=== PATIENT | female | born 1960 | race Caucasian/White ===

== ENCOUNTER 2017-01-23 10:50 | Emergency (ER) | payer BC ==
[~2017-01-23] VITALS: Ht 167.6 cm; Wt 95.5 kg
[~2017-01-23 10:50] MED LIST: LORTA5 PO; MACR100C37 PO; Z.0.NO CURRENT MEDS; ZOFR4TAB3 SL
[2017-01-23 10:51] VITALS: BP 180/84; PULSE 67; RESP 16; TEMP 98.6; O2SAT 98
[2017-01-23] MEDS ORDERED: METO1TAB9 PO (11:10)
[2017-01-23] MEDS ORDERED: GABA800T PO (11:10)
[2017-01-23] MEDS ORDERED: ASPI-516 CHEW (11:10)
[2017-01-23] MEDS ORDERED: SITA1TAB2 PO (11:10)
[2017-01-23] MEDS ORDERED: SIMV20TA PO (11:10)
[2017-01-23] MEDS ORDERED: VITA250T3 PO (11:10)
[2017-01-23] MEDS ORDERED: GLIM4TAB PO (11:10)
[2017-01-23] MEDS ORDERED: GABA400C5 PO (11:10)
[2017-01-23] MEDS ORDERED: DICL75TA PO (11:10)
[2017-01-23] MEDS ORDERED: METF850T PO (11:10)
[2017-01-23] MEDS ORDERED: AMLO5TAB2 PO (11:10)
[2017-01-23] MEDS ORDERED: SODIUM CHLOR 0.9% 1000 ML INJ 1,000 ML IV SCH (11:13)
[2017-01-23] MEDS ORDERED: SODIUM CHLORIDE 0.9% FLUSH 10 ML FLUSH IV FLUSH PRN (11:15)
--- NOTE | 2017-01-23 11:24 | PD ---
HPI Chief Complaint: GI Complaint Time Seen by Provider: 11:04 Travel History International Travel<30 days: No Contact w/Intl Traveler<30days: No Traveled to known affect area: No History of Present Illness HPI 56 year old female presents to the emergency department for evaluation of lower abdominal cramping and diarrhea with mucous with blood. Patient states that last weekend she had diarrhea. She states then she had constipation. She woke up this morning around 2 AM with a lot of lower abdominal cramping. She multiple episodes of diarrhea. She states that around 4 AM, she started with mucous in her stool which was bloody. She states she has never had this issue before. She denies any fevers or chills. No chest pain or shortness of breath. She reports history of hysterectomy and appendectomy. Patient states the cramping is mild. No radiation of the pain. No associated nausea or vomiting. Patient with history of diabetes, hypertension, hyperlipidemia. She is not on anticoagulants. Severity is moderate. No exacerbating or alleviating factors. PFSH Past Medical History Blood Disorders: No Heart Rhythm Problems: No Cancer: No Cardiovascular Problems: No High Cholesterol: No Chest Pain: No Congestive Heart Failure: No Diabetes: Yes Patient Takes Glucophage: Yes Endocrine: No Genitourinary: No Hypertension: Yes Immune Disorder: No Implanted Vascular Access Dvce: No Musculoskeletal: Yes (ACHY MUSCLES) Neurologic: No Psychiatric: No Reproductive: Yes (HYSTERECTOMY) Respiratory: No Immunizations Current: Yes Thyroid Disease: No Tetanus Vaccination: Unknown Influenza Vaccination: No ?: Not Menopausal: Yes Past Surgical History Appendectomy: Yes Genitourinary Surgery: Yes (bladder lift) Hysterectomy: Yes Pacemaker: No Other Surgery: Yes (LEFT HEEL SPUR RASP) Social History Alcohol Use: No Tobacco Use: Yes Substance Use: No Allergies-Medications (Allergen,Severity, Reaction): Coded Allergies: amoxicillin (Unverified Allergy, Severe, 01/23/17) clavulanic acid (Unverified Allergy, Severe, 01/23/17) Reported Meds & Prescriptions Reported Meds & Active Scripts Active Reported Aspirin 81 Mg Chew 81 Mg CHEW DAILY Vitamin C (Ascorbic Acid) 250 Mg Tab 500 Mg PO Simvastatin 20 Mg Tab 20 Mg PO DAILY Januvia (Sitagliptin Phosphate) 100 Mg Tab 100 Mg PO DAILY Metoprolol Succinate ER 24 HR (Metoprolol Succinate) 50 Mg Tab 50 Mg PO DAILY Diclofenac Sodium DR (Diclofenac Sodium) 75 Mg Tabdr 75 Mg PO DAILY Glimepiride 4 Mg Tab 4 Mg PO DAILY Take with breakfast or first main meal Amlodipine (Amlodipine Besylate) 5 Mg Tab 5 Mg PO DAILY Metformin (Metformin HCl) 850 Mg Tab 850 Mg PO DAILY With a meal Gabapentin 800 Mg Tab 800 Mg PO HS Gabapentin 400 Mg Cap 400 Cap PO DAILY@0600 Review of Systems Except as stated in HPI: all other systems reviewed are Neg Physical Exam Narrative GENERAL: Well-nourished, well-developed female patient, ambulatory. Afebrile. SKIN: Focused skin assessment warm/dry. HEAD: Normocephalic. Atraumatic. EYES: No scleral icterus. No injection or drainage. NECK: Supple, trachea midline. No JVD or lymphadenopathy. CARDIOVASCULAR: Regular rate and rhythm without murmurs, gallops, or rubs. RESPIRATORY: Breath sounds equal bilaterally. No accessory muscle use. Lungs sounds are clear to auscultation throughout. GASTROINTESTINAL: Abdomen soft, non-tender, nondistended. MUSCULOSKELETAL: No cyanosis, or edema. BACK: Nontender without obvious deformity. No CVA tenderness. RECTAL EXAM: No masses or tenderness, stool is brown. Sunrise noted on finger, this is Hemoccult positive. This exam was done with RN at bedside. Data Data Last Documented VS Vital Signs Date Time Temp Pulse Resp B/P (MAP) Pulse Ox O2 Delivery O2 Flow Rate FiO2 01/23/17 11:42 70 14 125/71 (89) 99 Room Air 01/23/17 10:51 98.6 Orders Orders Complete Blood Count With Diff (01/23/17 11:13) Comprehensive Metabolic Panel (01/23/17 11:13) Lipase (01/23/17 11:13) Prothrombin Time / Inr (Pt) (01/23/17 11:13) Act Partial Throm Time (Ptt) (01/23/17 11:13) Urinalysis - C+S If Indicated (01/23/17 11:13) Ct Abd/Pel W Iv Contrast(Rout) (01/23/17 11:13) Iv Access Insert/Monitor (01/23/17 11:13) Ecg Monitoring (01/23/17 11:13) Oximetry (01/23/17 11:13) Sodium Chlor 0.9% 1000 Ml Inj (Ns 1000 M (01/23/17 11:13) Sodium Chloride 0.9% Flush (Ns Flush) (01/23/17 11:15) Type And Screen (01/23/17 11:13) Iohexol 350 Inj (Omnipaque 350 Inj) (01/23/17 12:59) Labs Laboratory Tests Test 01/23/17 11:25 01/23/17 11:30 White Blood Count 12.7 TH/MM3 Red Blood Count 4.37 MIL/MM3 Hemoglobin 12.4 GM/DL Hematocrit 37.4 % Mean Corpuscular Volume 85.7 FL Mean Corpuscular Hemoglobin 28.4 PG Mean Corpuscular Hemoglobin Concent 33.1 % Red Cell Distribution Width 15.7 % Platelet Count 320 TH/MM3 Mean Platelet Volume 8.1 FL Neutrophils (%) (Auto) 79.4 % Lymphocytes (%) (Auto) 13.6 % Monocytes (%) (Auto) 4.5 % Eosinophils (%) (Auto) 2.1 % Basophils (%) (Auto) 0.4 % Neutrophils # (Auto) 10.0 TH/MM3 Lymphocytes # (Auto) 1.7 TH/MM3 Monocytes # (Auto) 0.6 TH/MM3 Eosinophils # (Auto) 0.3 TH/MM3 Basophils # (Auto) 0.1 TH/MM3 CBC Comment DIFF FINAL Differential Comment Prothrombin Time 10.7 SEC Prothromb Time International Ratio 1.0 RATIO Activated Partial Thromboplast Time 29.5 SEC Blood Urea Nitrogen 21 MG/DL Creatinine 0.99 MG/DL Random Glucose 275 MG/DL Total Protein 7.6 GM/DL Albumin 3.7 GM/DL Calcium Level 8.9 MG/DL Alkaline Phosphatase 134 U/L Aspartate Amino Transf (AST/SGOT) 18 U/L Alanine Aminotransferase (ALT/SGPT) 33 U/L Total Bilirubin 0.3 MG/DL Sodium Level 134 MEQ/L Potassium Level 4.2 MEQ/L Chloride Level 104 MEQ/L Carbon Dioxide Level 22.0 MEQ/L Anion Gap 8 MEQ/L Estimat Glomerular Filtration Rate 58 ML/MIN Lipase 140 U/L Urine Color COLORLESS Urine Turbidity CLEAR Urine pH 5.0 Urine Specific [place] 1.002 Urine Protein NEG mg/dL Urine Glucose (UA) 300 mg/dL Urine Ketones NEG mg/dL Urine Occult Blood NEG Urine Nitrite NEG Urine Bilirubin NEG Urine Urobilinogen LESS THAN 2.0 MG/DL Urine Leukocyte Esterase NEG Urine RBC LESS THAN 1 /hpf Microscopic Urinalysis Comment CULT NOT INDICATED MDM Medical Decision Making Medical Screen Exam Complete: Yes Emergency Medical Condition: Yes Medical Record Reviewed: Yes Interpretation(s) CT abdomen/pelvis - CONCLUSION: Decompressed sigmoid colon with some surrounding inflammation suspicious for colitis. No abscess or free fluid is identified. Differential Diagnosis Colitis versus diverticulitis versus lower GI bleed Narrative Course 56 year old female presents to the emergency department reevaluation of lower abdominal cramping, diarrhea with mucus and blood. Patient does appear well on exam. IV access established. CBC, CMP, lipase, PTT, PT/INR, UA are ordered and pending. CT abdomen/pelvis with IV contrast is ordered and pending. Patient is given normal saline 1 L IV fluids. CBC shows leukocytosis of 12.7. CMP shows elevated BUN of 21, glucose of 275, alkaline phosphatase of 134. Lipase is 140. Coags are unremarkable. UA is negative for acute infection. CT abdomen/pelvis shows decompressed sigmoid colon with some surrounding inflammation suspicious for colitis. No abscess or free fluid is identified.. Patient is given first dose of cipro and Flagyl in the emergency department. She will be discharged with a prescription for Ciprofloxacin and Flagyl. She is to follow up with her primary care physician. The patient was discharged in stable condition with instructions, including return instructions and follow up instructions. [facility] Point of Care Internal Pos. & Neg. Controls: Passed Fecal Specimen Occult Blood: Positive Diagnosis Primary Impression: Colitis Referrals: Transaction Manager call for appointment Primary Care Physician call for appointment Patient Instructions: Colitis (ED), General Instructions Additional Instructions: Take Cipro and Flagyl as directed until gone. Do not drink alcohol while on the Flagyl. [place] diet. Follow-up with her primary care physician. Return to the emergency department for any acute worsening of symptoms. Med/Other Pt SpecificInfo: Prescription(s) given Scripts Metronidazole (Flagyl) 500 Mg Tab 500 MG PO TID for Infection for 10 Days, TAB 0 Refills Prov: Manuela Gaspar 01/23/17 Ciprofloxacin (Cipro) 500 Mg Tab 500 MG PO BID for Infection for 10 Days, #20 TAB 0 Refills Prov: Manuela Gaspar 01/23/17 Disposition: DISCHARGE HOME Condition: Stable Manuela Gaspar Jan 23, 2017 11:24
[2017-01-23 11:41] VITALS: O2SAT 98
[2017-01-23 11:42] VITALS: BP 125/71; PULSE 70; RESP 14; O2SAT 99
[2017-01-23 11:56] LABS: BASOPHIL # 0.1 TH/MM3 (0-0.2); BASOPHIL % 0.4 % (0.0-2.0); EOSINOPHIL # 0.3 TH/MM3 (0-0.4); EOSINOPHIL % 2.1 % (0.0-4.0); HEMATOCRIT 37.4 % (35.0-46.0); HEMO FLAGS DIFF FINAL; LYMPH % 13.6 % (9.0-44.0); LYMPHOCYTE # 1.7 TH/MM3 (1.0-4.8); MEAN CELL VOLUME 85.7 FL (80.0-100.0); MEAN CORPUSCULAR HEMOGLOBIN 28.4 PG (27.0-34.0); MEAN CORPUSCULAR HGB CONC 33.1 % (32.0-36.0); MONO % 4.5 % (0.0-8.0); NEUT % 79.4 % (16.0-70.0); PLATELET COUNT 320 TH/MM3 (150-450); RED BLOOD COUNT 4.37 MIL/MM3 (4.00-5.30); RED CELL DISTRIBUTION WIDTH 15.7 % (11.6-17.2); WHITE BLOOD COUNT 12.7 TH/MM3 (4.0-11.0)
[2017-01-23 12:05] LABS: BLOOD, URINE NEG (NEG); COMMENT (UR) CULT NOT INDICATED; CULTURE IF INDICATED CULT NOT INDICATED; GLUCOSE,URINE 300 mg/dL (NEG); KETONE, URINE NEG (NEG); NITRITE,URINE NEG (NEG); URINE COLOR COLORLESS (YELLW/STRAW)
[2017-01-23 12:06] LABS: APTT (PATIENT) 29.5 SEC (24.3-30.1); PROTHROMBIN TIME - PATIENT 10.7 SEC (9.8-11.6)
[2017-01-23 12:17] LABS: ANION GAP 8 MEQ/L (5-15); AST (GOT) 18 U/L (15-37); BLOOD UREA NITROGEN 21 MG/DL (7-18); CHLORIDE 104 MEQ/L (98-107); GLOMERULAR FILTRATION RATE 58 ML/MIN (>89); POTASSIUM 4.2 MEQ/L (3.5-5.1); SODIUM (NA) 134 MEQ/L (136-145)
[2017-01-23 12:18] LABS: ALT (GPT) 33 U/L (10-53)
[2017-01-23 12:20] LABS: ALKALINE PHOSPHATASE 134 U/L (45-117); TOTAL BILIRUBIN ADULT 0.3 MG/DL (0.2-1.0)
[2017-01-23] MEDS ORDERED: IOHEXOL 350 MG/ML 10 ML VIAL (for RAD DIAG) IVCONTRAST ONE (12:59)
--- NOTE | 2017-01-23 13:11 | RADRPT ---
EXAM DATE/TIME: 01/23/2017 12:38 [facility] COMPARISON: No previous studies available for comparison. INDICATIONS : Mild abdominal cramping with rectal bleeding. IV CONTRAST: 94 cc Omnipaque 350 (iohexol) IV ORAL CONTRAST: No oral contrast ingested. RADIATION DOSE: 12.54 CTDIvol (mGy) MEDICAL HISTORY : Hypertension. SURGICAL HISTORY : Appendectomy. Hysterectomy. ENCOUNTER: Initial ACUITY: 1 day PAIN SCALE: 2/10 LOCATION: Bilateral abdomen TECHNIQUE: Volumetric scanning of the abdomen and pelvis was performed. Using automated exposure control and ad justment of the mA and/or kV according to patient size, radiation dose was kept as low as reasonably achievable to obtain optimal diagnostic quality images. DICOM format image data is available electro nically for review and comparison. FINDINGS: LOWER LUNGS: The visualized lower lungs are clear. LIVER: Homogeneous density without lesion. There is no dilation of the biliary tree. No calcified gallston es. SPLEEN: Normal size without lesion. PANCREAS: Within normal limits. KIDNEYS: Normal in size and shape. There is no mass, stone or hydronephrosis. ADRENAL GLANDS: Within normal limits. VASCULAR: There is no aortic aneurysm. BOWEL/MESENTERY: The sigmoid colon is decompressed with some inflammation in the surrounding fat suspicious for coliti s. I did not see any discrete diverticula, free fluid or abscess. ABDOMINAL WALL: Within normal limits. RETROPERITONEUM: There is no lymphadenopathy. BLADDER: No wall thickening or mass. REPRODUCTIVE: Within normal limits. INGUINAL: There is no lymphadenopathy or hernia. MUSCULOSKELETAL: Within normal limits for patient age. CONCLUSION: Decompressed sigmoid colon with some surrounding inflammation suspicious for colitis. No abscess or free fluid is identified. Ramone Edward MD on January 23, 2017 at 13:07 Board Certified Radiologist. This report was verified electronically.
[2017-01-23] MEDS ORDERED: CIPR-9 PO (13:19)
[2017-01-23] MEDS ORDERED: METR-1 PO (13:19)
[2017-01-23] MEDS ORDERED: metroNIDAZOLE 500 MG TAB PO ONE (13:30)
[2017-01-23] MEDS ORDERED: CIPROFLOXACIN 500 MG TAB PO ONE (13:30)
[2017-01-23 13:35] VITALS: BP 135/67; PULSE 62; RESP 14; O2SAT 97
== END 2017-01-23 13:39 | disposition home or self-care (01) ==
LOC: NEPE 10:50
DX: K52.9 Noninfective gastroenteritis and colitis, unspecified (principal); K59.00 Constipation, unspecified; E11.9 Type 2 diabetes mellitus without complications; I10 Essential (primary) hypertension; E78.5 Hyperlipidemia, unspecified; Z72.0 Tobacco use; Z79.82 Long term (current) use of aspirin; Z79.899 Other long term (current) drug therapy; Z88.0 Allergy status to penicillin
CPT/HCPCS: 74177; 80053; 81001; 83690; 85025; 85610; 85730; 86850; 86900; 86901; 96360; 96361; 99285; J7030; Q9967